=== PATIENT | female | born 1990 | race Caucasian/White ===

== ENCOUNTER 2016-05-26 10:32 | Emergency (ER) | payer SELFPAY ==
[2016-05-26 11:10] LABS: BASOPHIL 0.1 % (0-2); EOSINOPHIL 1.4 % (0-5); HCT 39.5 % (37.0-47.0); HGB 14.2 g/dl (12.5-16.0); LYMPHOCYTE 6.6 % (15-48); MCH 29.3 pg (25.0-31.0); MCHC 35.9 g/dL (32.0-36.0); MCV 81.6 fL (78.0-100.0); MONOCYTE 5.2 % (0-12); NEUTROPHIL 86.7 % (41-80); PLT 249 K/uL (150-400); RBC 4.84 M/uL (4.20-5.40); RDW 12.9 % (11.5-14.0); WBC 17.6 K/uL (4.0-10.5)
[2016-05-26 11:21] LABS: CREATININE 0.8 mg/dL (0.5-1.0)
[2016-05-26 11:24] LABS: BILIRUBIN NEGATIVE (NEGATIVE); BLOOD 2+ Ery/uL (NEGATIVE); CLARITY HAZY (CLEAR); COLOR YELLOW (YELLOW); GLUCOSE (U) NORMAL (NORMAL); KETONE (U) NEGATIVE (NEGATIVE); LEUKOCYTES 2+ Leu/uL (NEGATIVE); NITRITE NEGATIVE (NEGATIVE); PROTEIN 1+ mg/dL (NEGATIVE); SPECIFIC GRAVITY >=1.030 (1.001-1.030); UROBILINOGEN 0.2 mg/dL (0.2-1.0)
[2016-05-26 11:27] LABS: BACTERIA 3+; SQUAMOUS EPITHELIAL CELLS 20-50; URINARY WBC TNTC
[2016-05-26 12:52] LABS: LACTIC ACID 2.1 mmol/L (0.5-2.2)
== END 2016-05-26 14:15 | disposition home or self-care (01) ==
LOC: FER 10:32
PROVIDERS: Emergency Medicine
DX: N30.00 Acute cystitis without hematuria (principal)
CPT/HCPCS: 36415; 80048; 81001; 83605; 85025; 87040; 87088; J1170; J2405

== ENCOUNTER 2020-11-26 15:55 | Emergency (ER) | payer OTHER ==
[~2020-11-26 15:55] MED LIST: BENTYL10 MG PO; CARAFATE1 GM PO; METRONIDAZOLE500 MG PO; NAPROXEN500 MG PO; PROTONIX40 MG PO; ZOFRAN4 MG PO
[2020-11-26 17:08] LABS: BILIRUBIN NEGATIVE (NEGATIVE); BLOOD 2+ Ery/uL (NEGATIVE); CLARITY CLEAR (CLEAR); COLOR YELLOW (YELLOW); GLUCOSE (U) NORMAL (NORMAL); LEUKOCYTES NEGATIVE Leu/uL (NEGATIVE); NITRITE NEGATIVE (NEGATIVE); PROTEIN NEGATIVE (NEGATIVE); SPECIFIC GRAVITY 1.015 (1.001-1.030); pH 6.5 (5.0-9.0)
[2020-11-26 17:18] LABS: BACTERIA TRACE; URINARY RBC RARE; URINARY WBC RARE
[2020-11-26 21:01] LABS: BASOPHIL 0.4 % (0-2); EOSINOPHIL 1.3 % (0-5); HCT 41.1 % (37.0-47.0); HGB 13.8 g/dl (12.5-16.0); LYMPHOCYTE 27.7 % (15-48); MCH 28.9 pg (25.0-31.0); MCHC 33.6 g/dL (32.0-36.0); MONOCYTE 7.4 % (0-12); MPV 10.6 fL (6.0-9.5); NEUTROPHIL 62.8 % (41-80); NRBC 0; PLT 248 K/uL (150-400); RBC 4.78 M/uL (4.20-5.40); RDW 12.6 % (11.5-14.0); WBC 7.5 K/uL (4.0-10.5)
[2020-11-26 21:11] LABS: ALBUMIN 3.4 g/dL (3.4-5.0); BILIRUBIN - TOTAL 0.3 mg/dL (0.2-1.0); BUN/CREAT RATIO (CALC) 18.7 RATIO; CREATININE 0.75 mg/dL (0.51-0.95); GLOBULIN (CALCULATION) 3.5 g/dL; TOTAL PROTEIN 6.9 g/dL (6.4-8.2)
[2020-11-29 22:10] LABS: CHLAMYDIA TRACHOMATIS, NAA Negative (Negative); NEISSERIA GONORRHOEAE, NAA Negative (Negative)
== END 2020-11-27 02:04 | disposition home or self-care (01) ==
LOC: FER 15:55
PROVIDERS: Emergency Medicine; Internal Medicine
DX: R10.2 Pelvic and perineal pain (principal)
CPT/HCPCS: 36415; 80053; 81001; 84702; 85025; 87088; 87210; 87491; 87591; 99284